=== PATIENT | female | born 1980 | race American Indian/Alaskan Native ===

== ENCOUNTER 2018-05-06 09:23 | Emergency (ER) | payer OTHER ==
[2018-05-06] MEDS ORDERED: CATAPRES ONE (10:03)
[2018-05-06] MEDS ORDERED: ASPIRIN PO ONE (10:04)
[2018-05-06] MEDS ORDERED: CATAPRES PO ONE ×2 (10:05→11:52)
[2018-05-06 10:38] LABS: Basophils # (Auto) 0.1 K/mm3 (0.0-0.1); Basophils % (Auto) 0.9 % (0.0-1.8); Eosinophils # (Auto) 0.2 K/mm3 (0.0-0.4); Eosinophils % (Auto) 2.6 % (0.0-4.3); Hematocrit 41.5 % (30.3-42.9); Hemoglobin 14.1 gm/dl (10.1-14.3); Lymphocytes # (Auto) 2.3 K/mm3 (1.2-5.4); Lymphocytes % (Auto) 30.9 % (13.4-35.0); Mean Corpuscular HGB Conc 34 % (30-34); Mean Corpuscular Volume 94 fl (79-97); Monocytes # (Auto) 0.8 K/mm3 (0.0-0.8); Monocytes % (Auto) 11.1 % (0.0-7.3); Platelet Count 202 K/mm3 (140-440); Red Blood Count 4.42 M/mm3 (3.65-5.03); Red Cell Distribution Width 13.1 % (13.2-15.2)
[2018-05-06 10:51] LABS: BUN/Creatinine Ratio 12; Blood Urea Nitrogen 12 mg/dL (7-17); Calcium 8.9 mg/dL (8.4-10.2); Hemolysis Index 8
[2018-05-06] MEDS ORDERED: TORADOL IM ONE (11:21)
--- NOTE | 2018-05-06 11:28 | Emergency Department Report ---
ED General Adult HPI - General Chief complaint: High BP Stated complaint: HBP/TOOTHACHE Time Seen by Provider: 05/06/18 10:21 Source: patient, old records reviewed (no previous record) Mode of arrival: Ambulatory Limitations: No Limitations - History of Present Illness Initial comments: 37-year-old female the past medical history of hypertension presents to the hospital complaining of elevated blood pressure 2 days. Patient has a history of hypertension has been off medications for at least 3 months. She bought a blood pressure cuff monitor 2 days ago and her systolic blood pressure has consistently been over 200s. Patient complains of intermittent headache but denies headache at this time. She also has intermittent chest tightness which is chronic occasional shortness of breath. She denies nausea, vomiting, or diaphoresis. She also complains of left tooth ache/abscess pain that is moderate to severe in intensity and interfering with sleep. No complaints of fever or neck stiffness. Patient has chronic intermittent ankle edema which is unchanged. Patient tried to fill her previously prescribed medicines which include Norvasc 5 mg and a BP/diuretic combination medication. She could not afford the over $70 cost and was advised to have her medications adjusted. Patient reports having a negative stress test performed 6-7 months ago and states she was diagnosed with LVH. PMD: none Severity scale (0 -10): 7 - Related Data Previous Rx's Medication Instructions Recorded Last Taken Type Aspirin EC [Aspirin Enteric Coated 325 mg PO QDAY #30 tablet. 05/06/18 Unknown Rx TAB] Atenolol [Tenormin] 50 mg PO BID #60 tab 05/06/18 Unknown Rx Clindamycin [Clindamycin CAP] 450 mg PO Q8HR 7 Days capsule 05/06/18 Unknown Rx Ibuprofen [Motrin] 800 mg PO Q8HR PRN #30 tablet 05/06/18 Unknown Rx amLODIPine [Norvasc] 10 mg PO DAILY #30 tab 05/06/18 Unknown Rx traMADol [Ultram 50 MG tab] 50 mg PO Q6HR PRN #20 tablet 05/06/18 Unknown Rx Allergies Allergy/AdvReac Type Severity Reaction Status Date / Time No Known Allergies Allergy Verified 05/06/18 11:08 ED Review of Systems ROS: Stated complaint: HBP/TOOTHACHE Other details as noted in HPI Comment: All other systems reviewed and negative ED Past Medical Hx - Past Medical History Previous Medical History?: Yes Hx Hypertension: Yes - Surgical History Past Surgical History?: Yes Additional Surgical History: Surgery to left leg - Social History Smoking Status: Never Smoker Substance Use Type: Alcohol - Medications Home Medications: Home Medications Medication Instructions Recorded Confirmed Last Taken Type Aspirin EC [Aspirin Enteric Coated 325 mg PO QDAY #30 tablet. 05/06/18 Unknown Rx TAB] Atenolol [Tenormin] 50 mg PO BID #60 tab 05/06/18 Unknown Rx Clindamycin [Clindamycin CAP] 450 mg PO Q8HR 7 Days capsule 05/06/18 Unknown Rx Ibuprofen [Motrin] 800 mg PO Q8HR PRN #30 tablet 05/06/18 Unknown Rx amLODIPine [Norvasc] 10 mg PO DAILY #30 tab 05/06/18 Unknown Rx traMADol [Ultram 50 MG tab] 50 mg PO Q6HR PRN #20 tablet 05/06/18 Unknown Rx ED Physical Exam - General Limitations: No Limitations - Other Other exam information: General: No limitations, patient is alert in no acute distress Head exam: Atraumatic, normocephalic Eyes exam: Normal appearance, pupils equal reactive to light, extraocular movements intact ENT: Moist mucous membrane, left tooth #17 with dental caries with tooth #18 missing. Positive gum tenderness with mild swelling. No facial swelling. Neck exam: Normal inspection, full range of motion, no meningismus nontender Respiratory exam: Clear to auscultation bilateral, no wheezes, rales, crackles Cardiovascular: Normal rate and rhythm, normal heart sounds Abdomen: Soft, nondistended, and nontender, with normal bowel sounds, no rebound, or guarding Extremity: Full range of motion, bilateral ankle edema Back: Normal Inspection, full range of motion, no tenderness Neurologic: Alert, oriented x3, cranial nerves intact, no motor or sensory de ficit Psychiatric: normal affect, normal mood Skin: Warm, dry, intact ED Course Vital Signs 05/06/18 05/06/18 05/06/18 09:47 10:07 11:34 Temperature 98 F Pulse Rate 85 85 74 Respiratory 18 18 Rate Blood Pressure 201/145 201/145 Blood Pressure 189/120 [Right] O2 Sat by Pulse 98 Oximetry 05/06/18 05/06/18 05/06/18 11:35 11:57 13:17 Temperature Pulse Rate 74 Respiratory 18 Rate Blood Pressure 189/120 Blood Pressure 178/116 [Right] O2 Sat by Pulse Oximetry 05/06/18 05/06/18 13:58 15:44 Temperature Pulse Rate 72 68 Respiratory Rate Blood Pressure 178/116 Blood Pressure 166/115 [Right] O2 Sat by Pulse Oximetry - Reevaluation(s) Reevaluation #1: 05/06/18 14:47 Patient continues to complain generalized weakness and fatigue. Unsure if this is secondary to her dental infection or uncontrolled hypertension. Despite hours in the ED and multiple meds she continues to be hypertensive and not feeling well therefore be admitted to the hospital Reevaluation #2: 05/06/18 16:02 Case was discussed with Dr. Agosto however, nurse informed me at this time the patient does not want to be admitted. She will be signed out against medical - Consultations Consultation #1: 05/06/18 13:50 Case discussed with outpatient facility physical therapist Dr. Mclean. He recommends Norvasc 10 mg and atenolol 50 mg twice a day. outpt f/u advised if sx improve ED Medical Decision Making - Lab Data Result diagrams: 05/06/18 10:12 05/06/18 10:12 Lab Results 05/06/18 05/06/18 05/06/18 Range/Units 10:12 10:12 10:12 WBC 7.4 (4.5-11.0) K/mm3 RBC 4.42 (3.65-5.03) M/mm3 Hgb 14.1 (10.1-14.3) gm/dl Hct 41.5 (30.3-42.9) % MCV 94 (79-97) fl MCH 32 (28-32) pg MCHC 34 (30-34) % RDW 13.1 L (13.2-15.2) % Plt Count 202 (140-440) K/mm3 Lymph % (Auto) 30.9 (13.4-35.0) % [place] % (Auto) 11.1 H (0.0-7.3) % Eos % (Auto) 2.6 (0.0-4.3) % Baso % (Auto) 0.9 (0.0-1.8) % Lymph # 2.3 (1.2-5.4) K/mm3 [place] # 0.8 (0.0-0.8) K/mm3 Eos # 0.2 (0.0-0.4) K/mm3 Baso # 0.1 (0.0-0.1) K/mm3 Seg Neutrophils % 54.5 (40.0-70.0) % Seg Neutrophils # 4.0 (1.8-7.7) K/mm3 Sodium 140 (137-145) mmol/L Potassium 3.7 (3.6-5.0) mmol/L Chloride 102.0 (98-107) mmol/L Carbon Dioxide 25 (22-30) mmol/L Anion Gap 17 mmol/L BUN 12 (7-17) mg/dL Creatinine 1.0 (0.7-1.2) mg/dL Estimated GFR > 60 ml/min BUN/Creatinine Ratio 12 % Glucose 90 (65-100) mg/dL Calcium 8.9 (8.4-10.2) mg/dL Troponin T < 0.010 (0.00-0.029) ng/mL HCG, Qual Negative (Negative) 05/06/18 Range/Units 13:03 WBC (4.5-11.0) K/mm3 RBC (3.65-5.03) M/mm3 Hgb (10.1-14.3) gm/dl Hct (30.3-42.9) % MCV (79-97) fl MCH (28-32) pg MCHC (30-34) % RDW (13.2-15.2) % Plt Count (140-440) K/mm3 Lymph % (Auto) (13.4-35.0) % [place] % (Auto) (0.0-7.3) % Eos % (Auto) (0.0-4.3) % Baso % (Auto) (0.0-1.8) % Lymph # (1.2-5.4) K/mm3 [place] # (0.0-0.8) K/mm3 Eos # (0.0-0.4) K/mm3 Baso # (0.0-0.1) K/mm3 Seg Neutrophils % (40.0-70.0) % Seg Neutrophils # (1.8-7.7) K/mm3 Sodium (137-145) mmol/L Potassium (3.6-5.0) mmol/L Chloride (98-107) mmol/L Carbon Dioxide (22-30) mmol/L Anion Gap mmol/L BUN (7-17) mg/dL Creatinine (0.7-1.2) mg/dL Estimated GFR ml/min BUN/Creatinine Ratio % Glucose (65-100) mg/dL Calcium (8.4-10.2) mg/dL Troponin T < 0.010 (0.00-0.029) ng/mL HCG, Qual (Negative) - EKG Data -: EKG Interpreted by Me EKG shows normal: sinus rhythm, axis (qrs40), QRS complexes (qrsd 87), ST-T w aves (no ST elevation WI) Rate: normal (79) - EKG Data When compared to previous EKG there are: previous EKG unavailable - Radiology Data Radiology results: report reviewed Chest x-ray: No acute findings - Medical Decision Making Plan significant recent hospital for further cardiac evaluation and management of blood pressure BP did have some improvement in the ED Patient continued to be symptomatic Clindamycin provided for dental infection - Differential Diagnosis WI, unstable angina, hypertensive emergency, medication noncompliance Critical Care Time: No Critical care attestation.: If time is entered above; I have spent that time in minutes in the direct care of this critically ill patient, excluding procedure time. ED Disposition Clinical Impression: Uncontrolled hypertension, Noncompliance with medication regimen, Chest tightness, Fatigue, Dental infection Disposition: DC-07 LEFT AGAINST MED ADVICE Is pt being admited?: Yes Does the pt Need Aspirin: Yes Condition: Stable Instructions: Hypertension (ED), Toothache (ED), Chest Pain (ED) Additional Instructions: Take the medication as prescribed. Follow up with your doctor or the clinic/doctor provided. Return if symptoms worsen as indicated by your discharge instructions Prescriptions: Aspirin EC [Aspirin Enteric Coated TAB] 325 mg PO QDAY #30 tablet. Clindamycin [Clindamycin CAP] 450 mg PO Q8HR 7 Days capsule Ibuprofen [Motrin] 800 mg PO Q8HR PRN #30 tablet PRN Reason: Pain, Moderate (4-6) amLODIPine [Norvasc] 10 mg PO DAILY #30 tab Atenolol [Tenormin] 50 mg PO BID #60 tab traMADol [Ultram 50 MG tab] 50 mg PO Q6HR PRN #20 tablet PRN Reason: Pain [facility] [Primary Care [facility] - 3-5 Days VALENTINA KIMBALL MD [Staff Physician] - 3-5 Days [facility] [Outside] - 3-5 Days Forms: AMA Form Time of Disposition: 14:51 (Dr Agosto/hosp)
--- NOTE | 2018-05-06 12:45 | XRay Report ---
EXAM: XR CHEST ROUTINE 2V HISTORY: Chest pain. TECHNIQUE: PA and lateral chest x-ray dated 05/06/2018 at 11:50 AM. COMPARISON: None available. FINDINGS: The heart size and mediastinum are within normal limits. The lung raman and costophrenic angles are clear. There is no acute parenchymal infiltrate, pleural effusion, or pneumothorax seen. The visua lized bony structures are within normal limits. IMPRESSION: 1. No evidence for acute cardiopulmonary disease seen. This document is electronically signed by Bakari Early MD., May 06 2018 12:42:54 PM ET
[2018-05-06] MEDS: TENORMIN PO ONE ×2 (13:55→13:58)
[2018-05-06] MEDS ORDERED: CLEOCIN PO ONE (14:50)
--- NOTE | 2018-05-06 15:32 | Cat Scan Report ---
PROCEDURE: CT HEAD/BRAIN WO CON TECHNIQUE: CT images of the head were obtained without the use of IV contrast HISTORY: weak COMPARISONS: None available FINDINGS: No CT evidence of intracranial mass, hemorrhage, acute territorial infarction, or hydrocephalus. Dura l calcifications are noted. Calvarium is intact. Paranasal sinuses are not fully imaged. There is ant erior left ethmoid sinus mucosal thickening. IMPRESSION: No CT evidence of acute intracranial abnormality. The paranasal sinuses are not fully imaged, however left anterior ethmoid sinus mucosal thickening is noted. This document is electronically signed by Traci Bryant MD., May 06 2018 03:29:59 PM ET
[2018-05-06 15:34] LABS: Amphetamine Screen,Urine PRESUMPTIVE NEGATIVE; Benzodiazepines Screen,Urine PRESUMPTIVE NEGATIVE; Cannabinoid Screen,Urine PRESUMPTIVE NEGATIVE; Cocaine Screen,Urine PRESUMPTIVE NEGATIVE; Methadone Screen,Urine PRESUMPTIVE NEGATIVE; Opiate Screen,Urine PRESUMPTIVE NEGATIVE
[2018-05-06 15:45] VITALS: BP 166/115
--- NOTE | 2018-05-06 18:26 | Event Note ---
Date: 05/06/18 37 YO Female with Uncontrolled HTN, Medication noncompliance presents to ED for evaluation. Pt Left AMA prior to completion of workup. Pt counseled regarding risk of worsening symptoms, Stroke, and possible . Pt acknowledges understanding instructions. Pt left AMA. General: No limitations, patient is alert in no acute distress Head exam: Atraumatic, normocephalic Eyes exam: Normal appearance, pupils equal reactive to light, extraocular movements intact ENT: Moist mucous membrane, left tooth #17 with dental caries with tooth #18 missing. Positive gum tenderness with mild swelling. No facial swelling. Neck exam: Normal inspection, full range of motion, no meningismus nontender Respiratory exam: Clear to auscultation bilateral, no wheezes, rales, crackles Cardiovascular: Normal rate and rhythm, normal heart sounds Abdomen: Soft, nondistended, and nontender, with normal bowel sounds, no rebound, or guarding Extremity: Full range of motion, bilateral ankle edema Back: Normal Inspection, full range of motion, no tenderness Neurologic: Alert, oriented x3, cranial nerves intact, no motor or sensory deficit Psychiatric: normal affect, normal mood Skin: Warm, dry, intact
== END 2018-05-06 16:37 | disposition left against medical advice (07) ==
LOC: ED 09:23
DX: I16.0 Hypertensive urgency (principal); I10 Essential (primary) hypertension; K08.89 Other specified disorders of teeth and supporting structures; Z79.82 Long term (current) use of aspirin
CPT/HCPCS: 36415; 70450; 71046; 80048; 80307; 84484; 84703; 85025; 93005; 93010; 96372; 99285; J1885

== ENCOUNTER 2018-07-04 11:59 | Emergency (ER) | payer OTHER ==
[2018-07-04] MEDS ORDERED: CATAPRES PO ONE ×2 (12:32→16:57)
[2018-07-04 12:33] VITALS: BP 219/119
[2018-07-04] MEDS ORDERED: CATAPRES ONE ×2 (12:35→16:58)
--- NOTE | 2018-07-04 12:35 | Emergency Department Report ---
Chief Complaint: Chest Pain Stated Complaint: CHEST PAIN/LEG SWOLLEN/HTN Time Seen by Provider: 07/04/18 12:31 - HPI History of Present Illness: pmh uncontrolled htn elevated ddimer non compliant with norvasc, clonidine and another bp med co sob ble swelling legs obese no fam hx previous smoker mse completed - Exam Vital Signs: Vital Signs 07/04/18 12:30 Temperature 97.4 F L Pulse Rate 84 Respiratory 20 Rate Blood Pressure 219/119 [Right] O2 Sat by Pulse 99 Oximetry MSE screening note: Focused history and physical exam performed. Due to findings the following was ordered: ED Disposition for MSE Condition: Stable
[2018-07-04 13:47] LABS: HCG Qualitative,Urine Negative (Negative)
[2018-07-04 13:48] LABS: Bacteria,Urine 1+ /HPF (Negative); Bilirubin,Urine NEG (Negative); Blood,Urine NEG (Negative); Color,Urine Yellow (Yellow); Mucus,Urine FEW /HPF; Protein,Urine <15 mg/dL mg/dL (Negative); Urobilinogen,Urine < 2.0 mg/dL (<2.0); WBC,Urine < 1.0 /HPF (0.0-6.0)
--- NOTE | 2018-07-04 14:04 | XRay Report ---
Chest 2 views: History: Chest pain. Findings: Normal cardiomediastinal silhouette. Trachea is midline. No consolidation, pneumothorax or pleural effusion. Impression: No acute cardiopulmonary findings.
--- NOTE | 2018-07-04 14:13 | Vascular Lab Report ---
PROCEDURE: VL VENOUS DUPLEX LE BILAT TECHNIQUE: Downs scale, color and pulsed Doppler ultrasound with color flow and spectral analysis eval uation of both lower extremities were performed to assess for deep vein thrombosis. HISTORY: hx DVT leg swelling COMPARISONS: None currently available. FINDINGS: RIGHT extremity: There is normal grayscale appearance and compressibility. Normal phasic pulsed Doppler and normal col or Doppler flow are visualized. The interrogated vessels show normal augmentation. LEFT extremity: There is normal grayscale appearance and compressibility. Normal phasic pulsed Doppler and normal col or Doppler flow are visualized. The interrogated vessels show normal augmentation. IMPRESSION: * No evidence for DVT. This document is electronically signed by Gonzalo Ayala MD., Jul 04 2018 02:11:27 PM ET
[2018-07-04 15:05] LABS: Basophils # (Auto) 0.1 K/mm3 (0.0-0.1); Basophils % (Auto) 0.7 % (0.0-1.8); Eosinophils # (Auto) 0.2 K/mm3 (0.0-0.4); Eosinophils % (Auto) 2.4 % (0.0-4.3); Hematocrit 38.3 % (30.3-42.9); Hemoglobin 12.9 gm/dl (10.1-14.3); Lymphocytes # (Auto) 1.8 K/mm3 (1.2-5.4); Lymphocytes % (Auto) 21.4 % (13.4-35.0); Mean Corpuscular HGB Conc 34 % (30-34); Mean Corpuscular Volume 94 fl (79-97); Monocytes # (Auto) 0.9 K/mm3 (0.0-0.8); Monocytes % (Auto) 10.1 % (0.0-7.3); Platelet Count 239 K/mm3 (140-440); Red Blood Count 4.06 M/mm3 (3.65-5.03)
[2018-07-04 15:27] LABS: Alanine Aminotransferase 22 units/L (7-56); Albumin 3.9 g/dL (3.9-5); BUN/Creatinine Ratio 17; Blood Urea Nitrogen 20 mg/dL (7-17); Hemolysis Index 4
--- NOTE | 2018-07-04 16:43 | Emergency Department Report ---
ED Chest Pain HPI - General Chief Complaint: Chest Pain Stated Complaint: CHEST PAIN/LEG SWOLLEN/HTN Time Seen by Provider: 07/04/18 12:31 Source: patient Mode of arrival: Ambulatory Limitations: No Limitations - History of Present Illness Initial Comments: is a 37-year-old female who has a history of poorly controlled hypertension who is stating that her blood pressures been very elevated for S week. Patient states she ran out of her blood pressure medicines and does not have refill. Patient states she has occasional chest discomfort which is a smothering sensation especially when she is laying flat. Patient also has a decrease in her exercise tolerance and lower extremity edema especially and ankles. Patient is currently chest pain-free to speak in full sentences. Patient denies any diaphoresis nausea vomiting fever chills cough cold or congestion. Severity scale (0 -10): 4 - Related Data Previous Rx's Medication Instructions Recorded Last Taken Type Aspirin EC [Aspirin Enteric Coated 325 mg PO QDAY #30 tablet. 05/06/18 Unknown Rx TAB] Atenolol [Tenormin] 50 mg PO BID #60 tab 05/06/18 Unknown Rx Clindamycin [Clindamycin CAP] 450 mg PO Q8HR 7 Days capsule 05/06/18 Unknown Rx Ibuprofen [Motrin] 800 mg PO Q8HR PRN #30 tablet 05/06/18 Unknown Rx amLODIPine [Norvasc] 10 mg PO DAILY #30 tab 05/06/18 Unknown Rx traMADol [Ultram 50 MG tab] 50 mg PO Q6HR PRN #20 tablet 05/06/18 Unknown Rx Furosemide [Lasix] 20 mg PO QDAY #5 tablet 07/04/18 Unknown Rx Ibuprofen [Ibu] 600 mg PO Q6HR PRN #20 tablet 07/04/18 Unknown Rx Lisinopril/Hydrochlorothiazide 1 each PO DAILY #30 tablet 07/04/18 Unknown Rx [Zestoretic 10-12.5 mg Tablet] amLODIPine [Norvasc] 10 mg PO DAILY #30 tab 07/04/18 Unknown Rx Allergies Allergy/AdvReac Type Severity Reaction Status Date / Time No Known Allergies Allergy Verified 07/04/18 12:10 Heart Score - HEART Score History: Slightly suspicious EKG: Non-specific Age: < 45 Risk factors: 1-2 risk factors Troponin: < normal limit HEART Score: 2 ED Review of Systems ROS: Stated complaint: CHEST PAIN/LEG SWOLLEN/HTN Other details as noted in HPI Comment: All other systems reviewed and negative ED Past Medical Hx - Past Medical History Hx Hypertension: Yes - Surgical History Additional Surgical History: Surgery to left leg - Social History Smoking Status: Never Smoker Substance Use Type: Alcohol - Medications Home Medications: Home Medications Medication Instructions Recorded Confirmed Last Taken Type Aspirin EC [Aspirin Enteric Coated 325 mg PO QDAY #30 tablet.dr 05/06/18 Unknown Rx TAB] Atenolol [Tenormin] 50 mg PO BID #60 tab 05/06/18 Unknown Rx Clindamycin [Clindamycin CAP] 450 mg PO Q8HR 7 Days capsule 05/06/18 Unknown Rx Ibuprofen [Motrin] 800 mg PO Q8HR PRN #30 tablet 05/06/18 Unknown Rx amLODIPine [Norvasc] 10 mg PO DAILY #30 tab 05/06/18 Unknown Rx traMADol [Ultram 50 MG tab] 50 mg PO Q6HR PRN #20 tablet 05/06/18 Unknown Rx Furosemide [Lasix] 20 mg PO QDAY #5 tablet 07/04/18 Unknown Rx Ibuprofen [Ibu] 600 mg PO Q6HR PRN #20 tablet 07/04/18 Unknown Rx Lisinopril/Hydrochlorothiazide 1 each PO DAILY #30 tablet 07/04/18 Unknown Rx [Zestoretic 10-12.5 mg Tablet] amLODIPine [Norvasc] 10 mg PO DAILY #30 tab 07/04/18 Unknown Rx ED Physical Exam - General Limitations: No Limitations General appearance: alert, in no apparent distress - Head Head exam: Present: atraumatic, normocephalic - Eye Eye exam: Present: normal appearance - ENT ENT exam: Present: mucous membranes moist - Neck Neck exam: Present: normal inspection - Respiratory Respiratory exam: Present: normal lung sounds bilaterally. Absent: respiratory distress, wheezes, rales, rhonchi - Cardiovascular Cardiovascular Exam: Present: regular rate, normal rhythm. Absent: systolic murmur, diastolic murmur, rubs, gallop - GI/Abdominal GI/Abdominal exam: Present: soft, normal bowel sounds. Absent: distended, tenderness, guarding, rebound - Extremities Exam Extremities exam: Present: normal inspection, joint swelling (bilateral ankles) - Back Exam Back exam: Present: normal inspection - Neurological Exam Neurological exam: Present: alert, oriented X3 - Psychiatric Psychiatric exam: Present: normal affect, normal mood - Skin Skin exam: Present: warm, dry, intact, normal color. Absent: rash ED Course Vital Signs 07/04/18 12:30 Temperature 97.4 F L Pulse Rate 84 Respiratory 20 Rate Blood Pressure 219/119 [Right] O2 Sat by Pulse 99 Oximetry ED Medical Decision Making - Lab Data Result diagrams: 07/04/18 14:48 07/04/18 14:48 Lab Results 07/04/18 07/04/18 07/04/18 Range/Units 13:32 14:48 14:48 WBC 8.6 (4.5-11.0) K/mm3 RBC 4.06 (3.65-5.03) M/mm3 Hgb 12.9 (10.1-14.3) gm/dl Hct 38.3 (30.3-42.9) % MCV 94 (79-97) fl MCH 32 (28-32) pg MCHC 34 (30-34) % RDW 14.0 (13.2-15.2) % Plt Count 239 (140-440) K/mm3 Lymph % (Auto) 21.4 (13.4-35.0) % [place] % (Auto) 10.1 H (0.0-7.3) % Eos % (Auto) 2.4 (0.0-4.3) % Baso % (Auto) 0.7 (0.0-1.8) % Lymph # 1.8 (1.2-5.4) K/mm3 [place] # 0.9 H (0.0-0.8) K/mm3 Eos # 0.2 (0.0-0.4) K/mm3 Baso # 0.1 (0.0-0.1) K/mm3 Seg Neutrophils % 65.4 (40.0-70.0) % Seg Neutrophils # 5.6 (1.8-7.7) K/mm3 Sodium 140 (137-145) mmol/L Potassium 4.0 (3.6-5.0) mmol/L Chloride 103.4 (98-107) mmol/L Carbon Dioxide 26 (22-30) mmol/L Anion Gap 15 mmol/L BUN 20 H (7-17) mg/dL Creatinine 1.2 (0.7-1.2) mg/dL Estimated GFR > 60 ml/min BUN/Creatinine Ratio 17 % Glucose 96 (65-100) mg/dL Calcium 9.0 (8.4-10.2) mg/dL Total Bilirubin < 0.20 (0.1-1.2) mg/dL AST 19 (5-40) units/L ALT 22 (7-56) units/L Alkaline Phosphatase 42 (35-129) units/L Troponin T < 0.010 (0.00-0.029) ng/mL NT-Pro-B Natriuret Pep (0-450) pg/mL Total Protein 6.6 (6.3-8.2) g/dL Albumin 3.9 (3.9-5) g/dL Albumin/Globulin Ratio 1.4 % Urine Color Yellow (Yellow) Urine Turbidity Slightly-cloudy (Clear) Urine pH 5.0 (5.0-7.0) Ur Specific [place] 1.023 (1.003-1.030) Urine Protein <15 mg/dl (Negative) mg/dL Urine Glucose (UA) Neg (Negative) mg/dL Urine Ketones Neg (Negative) mg/dL Urine Blood Neg (Negative) Urine Nitrite Neg (Negative) Ur Reducing Substances Not Reportable Urine Bilirubin Neg (Negative) Urine Ictotest Not Reportable Urine Urobilinogen < 2.0 (<2.0) mg/dL Ur Leukocyte Esterase Neg (Negative) Urine WBC (Auto) < 1.0 (0.0-6.0) /HPF Urine RBC (Auto) 2.0 (0.0-6.0) /HPF U Epithel Cells (Auto) 5.0 (0-13.0) /HPF Urine Bacteria (Auto) 1+ (Negative) /HPF Urine Mucus Few /HPF Urine HCG, Qual Negative (Negative) 07/04/18 Range/Units 14:48 WBC (4.5-11.0) K/mm3 RBC (3.65-5.03) M/mm3 Hgb (10.1-14.3) gm/dl Hct (30.3-42.9) % MCV (79-97) fl MCH (28-32) pg MCHC (30-34) % RDW (13.2-15.2) % Plt Count (140-440) K/mm3 Lymph % (Auto) (13.4-35.0) % [place] % (Auto) (0.0-7.3) % Eos % (Auto) (0.0-4.3) % Baso % (Auto) (0.0-1.8) % Lymph # (1.2-5.4) K/mm3 [place] # (0.0-0.8) K/mm3 Eos # (0.0-0.4) K/mm3 Baso # (0.0-0.1) K/mm3 Seg Neutrophils % (40.0-70.0) % Seg Neutrophils # (1.8-7.7) K/mm3 Sodium (137-145) mmol/L Potassium (3.6-5.0) mmol/L Chloride (98-107) mmol/L Carbon Dioxide (22-30) mmol/L Anion Gap mmol/L BUN (7-17) mg/dL Creatinine (0.7-1.2) mg/dL Estimated GFR ml/min BUN/Creatinine Ratio % Glucose (65-100) mg/dL Calcium (8.4-10.2) mg/dL Total Bilirubin (0.1-1.2) mg/dL AST (5-40) units/L ALT (7-56) units/L Alkaline Phosphatase (35-129) units/L Troponin T (0.00-0.029) ng/mL NT-Pro-B Natriuret Pep 91.29 (0-450) pg/mL Total Protein (6.3-8.2) g/dL Albumin (3.9-5) g/dL Albumin/Globulin Ratio % Urine Color (Yellow) Urine Turbidity (Clear) Urine pH (5.0-7.0) Ur Specific [place] (1.003-1.030) Urine Protein (Negative) mg/dL Urine Glucose (UA) (Negative) mg/dL Urine Ketones (Negative) mg/dL Urine Blood (Negative) Urine Nitrite (Negative) Ur Reducing Substances Urine Bilirubin (Negative) Urine Ictotest Urine Urobilinogen (<2.0) mg/dL Ur Leukocyte Esterase (Negative) Urine WBC (Auto) (0.0-6.0) /HPF Urine RBC (Auto) (0.0-6.0) /HPF U Epithel Cells (Auto) (0-13.0) /HPF Urine Bacteria (Auto) (Negative) /HPF Urine Mucus /HPF Urine HCG, Qual (Negative) - EKG Data -: EKG Interpreted by Me EKG shows normal: sinus rhythm, axis, intervals, QRS complexes, ST-T waves Rate: normal - EKG Data Interpretation: LVH - Radiology Data Radiology results: report reviewed (CXR WNL) - Medical Decision Making Did have a conversation with the patient regarding better management of her blood pressure. Patient believes in the very earliest spectrum of congestive heart failure. While sitting still the patient is symptom-free. Patient's blood pressure was 184/120 at the time of discharge. Patient's currently not having any symptoms. Patient restarted back on her Norvasc 10. Patient states that she is was not happy with the Catapres that she was on and the patient will be switched to lisinopril Hendricks with eyes. Patient also given 1 week of Lasix. Critical Care Time: Yes (30) Critical care attestation.: If time is entered above; I have spent that time in minutes in the direct care of this critically ill patient, excluding procedure time. ED Disposition Clinical Impression: Hypertensive urgency, malignant Disposition: DC-01 TO HOME OR SELFCARE Is pt being admited?: No Does the pt Need Aspirin: No Condition: Stable Instructions: Hypertension (ED) Referrals: ESTEVAN JO MD [Staff Physician] - 3-5 Days Time of Disposition: 16:46
== END 2018-07-04 16:58 | disposition home or self-care (01) ==
LOC: ED 11:59
DX: I16.0 Hypertensive urgency (principal); I10 Essential (primary) hypertension
CPT/HCPCS: 36415; 71046; 80053; 81001; 81025; 83880; 84484; 85025; 93005; 93010; 93970

== ENCOUNTER 2018-09-19 14:34 | Emergency (ER) | payer SELFPAY ==
[2018-09-19 15:16] LABS: Basophils # (Auto) 0.1 K/mm3 (0.0-0.1); Basophils % (Auto) 0.9 % (0.0-1.8); Eosinophils # (Auto) 0.2 K/mm3 (0.0-0.4); Eosinophils % (Auto) 2.1 % (0.0-4.3); Hematocrit 43.4 % (30.3-42.9); Lymphocytes # (Auto) 2.5 K/mm3 (1.2-5.4); Lymphocytes % (Auto) 31.7 % (13.4-35.0); Mean Corpuscular HGB Conc 35 % (30-34); Mean Corpuscular Volume 95 fl (79-97); Monocytes # (Auto) 0.7 K/mm3 (0.0-0.8); Monocytes % (Auto) 8.9 % (0.0-7.3); Platelet Count 245 K/mm3 (140-440); Red Blood Count 4.58 M/mm3 (3.65-5.03); Red Cell Distribution Width 13.5 % (13.2-15.2)
[2018-09-19 15:50] LABS: BUN/Creatinine Ratio 12; Blood Urea Nitrogen 13 mg/dL (7-17); Calcium 9.1 mg/dL (8.4-10.2); Hemolysis Index 12
[2018-09-19] MEDS ORDERED: CATAPRES PO ONE (16:14)
--- NOTE | 2018-09-19 16:34 | Emergency Department Report ---
HPI - General Chief Complaint: High BP Time Seen by Provider: 09/19/18 16:12 - HPI HPI: Room 8 The patient is a 37-year-old female presenting with a chief complaint of hypertension. The patient states she ran out of her blood pressure medication approximately 4 days ago and has since noticed her blood pressure is elevated. Patient states the past 3 days she's had intermittent diffuse headache. The patient states for the past 4 days she's had intermittent chest tightness with exertion associated with shortness of breath. Patient was to dyspnea on exertion but denies nausea/vomiting or diaphoresis. Patient states her last stress test occurred approximately one year ago she's never had a cardiac catheterization. Location: [See above] Duration: [See above] Quality: [See above] Severity: [See above] Modifying factors: [see above] Context: [see above] Mode of transportation: [not driving] ED Past Medical Hx - Past Medical History Previous Medical History?: Yes Hx Hypertension: Yes Additional medical history: LVH - Surgical History Past Surgical History?: Yes Additional Surgical History: Surgery to left leg - Family History Family history: no significant - Social History Smoking Status: Current Some Day Smoker (Black and milds) Substance Use Type: None (denies illicit drug use), Alcohol (moderate) - Medications Home Medications: Home Medications Medication Instructions Recorded Confirmed Last Taken Type Aspirin EC 325 mg PO QDAY #30 tablet. 05/06/18 Unknown Rx Atenolol [Tenormin] 50 mg PO BID #60 tab 05/06/18 Unknown Rx Clindamycin [Clindamycin CAP] 450 mg PO Q8HR 7 Days capsule 05/06/18 Unknown Rx Ibuprofen [Motrin] 800 mg PO Q8HR PRN #30 tablet 05/06/18 Unknown Rx amLODIPine [Norvasc] 10 mg PO DAILY #30 tab 05/06/18 Unknown Rx traMADol [Ultram 50 MG tab] 50 mg PO Q6HR PRN #20 tablet 05/06/18 Unknown Rx Furosemide [Lasix] 20 mg PO QDAY #5 tablet 07/04/18 Unknown Rx Ibuprofen [Ibu] 600 mg PO Q6HR PRN #20 tablet 07/04/18 Unknown Rx Lisinopril/Hydrochlorothiazide 1 each PO DAILY #30 tablet 07/04/18 Unknown Rx [Zestoretic 10-12.5 mg Tablet] amLODIPine [Norvasc] 10 mg PO DAILY #30 tab 07/04/18 Unknown Rx ED Review of Systems ROS: Stated complaint: HBP 251/144 SOB Other details as noted in HPI Constitutional: denies: diaphoresis Eyes: denies: eye pain ENT: denies: throat pain Respiratory: shortness of breath, SOB with exertion Cardiovascular: chest pain Endocrine: no symptoms reported Gastrointestinal: denies: nausea, vomiting Genitourinary: denies: dysuria Musculoskeletal: denies: back pain Neurological: headache Physical Exam - Physical Exam Vital Signs: Vital Signs 09/19/18 09/19/18 09/19/18 14:49 15:49 16:11 Temperature 98.1 F Pulse Rate 99 H 72 72 Respiratory 20 18 18 Rate Blood Pressure 223/154 Blood Pressure 216/113 206/113 [Left] O2 Sat by Pulse 97 100 100 Oximetry Physical Exam: GENERAL: The patient is well-developed well-nourished female lying on stretcher not appearing to be in acute distress. [] HEENT: Normocephalic. Atraumatic. Extraocular motions are intact. Patient has moist mucous membranes. NECK: Supple. Trachea midline CHEST/LUNGS: Clear to auscultation. There is no respiratory distress noted. HEART/CARDIOVASCULAR: Regular. There is no tachycardia. There is no gallop rub or murmur. ABDOMEN: Abdomen is soft, nontender. Patient has normal bowel sounds. There is no abdominal distention. SKIN: There is no rash. There is no edema. There is no diaphoresis. NEURO: The patient is awake, alert, and oriented. The patient is cooperative. The patient has no focal neurologic deficits. The patient has normal speech. Cranial nerves II-12 grossly intact, no drift MUSCULOSKELETAL: There is no evidence of acute injury. ED Course Vital Signs 09/19/18 09/19/18 09/19/18 14:49 15:49 16:11 Temperature 98.1 F Pulse Rate 99 H 72 72 Respiratory 20 18 18 Rate Blood Pressure 223/154 Blood Pressure 216/113 206/113 [Left] O2 Sat by Pulse 97 100 100 Oximetry ED Medical Decision Making - Lab Data Result diagrams: 09/19/18 14:58 09/19/18 14:58 Laboratory Tests 09/19/18 09/19/18 09/19/18 14:58 14:58 14:58 WBC 8.0 RBC 4.58 Hgb 15.0 H Hct 43.4 H MCV 95 MCH 33 H MCHC 35 H RDW 13.5 Plt Count 245 Lymph % (Auto) 31.7 Phelps % (Auto) 8.9 H Eos % (Auto) 2.1 Baso % (Auto) 0.9 Lymph # 2.5 Phelps # 0.7 Eos # 0.2 Baso # 0.1 Seg Neutrophils % 56.4 Seg Neutrophils # 4.5 Sodium 140 Potassium 3.6 Chloride 104.6 Carbon Dioxide 22 Anion Gap 17 BUN 13 Creatinine 1.1 Estimated GFR > 60 BUN/Creatinine Ratio 12 Glucose 101 H Calcium 9.1 Troponin T < 0.010 HCG, Qual Negative 09/19/18 18:09 WBC RBC Hgb Hct MCV MCH MCHC RDW Plt Count Lymph % (Auto) Phelps % (Auto) Eos % (Auto) Baso % (Auto) Lymph # Phelps # Eos # Baso # Seg Neutrophils % Seg Neutrophils # Sodium Potassium Chloride Carbon Dioxide Anion Gap BUN Creatinine Estimated GFR BUN/Creatinine Ratio Glucose Calcium Troponin T < 0.010 HCG, Qual - EKG Data -: EKG Interpreted by Me EKG shows normal: sinus rhythm Rate: normal - EKG Data When compared to previous EKG there are: no significant change Interpretation: unchanged when compared t - Radiology Data Radiology results: report reviewed (chest x-ray), image reviewed (chest x-ray) interpreted by me: Chest x-ray-no focal infiltrates, no pneumothorax [address] [address] XRay Report Signed Patient: DAVID LOWE MR#: [id number] : 1980 Acct:[id number] Age/Sex: 37 / F ADM Date: 09/19/18 Loc: ED Attending Dr: Ordering Physician: VICKIE HECTOR MD Date of Service: 09/19/18 Procedure(s): XR chest 1V ap Accession Number(s): [id number] cc: VICKIE HECTOR MD Fluoro Time In Minutes: CHEST 1 VIEW 4:29 PM INDICATION / CLINICAL INFORMATION: Chest Pain. COMPARISON: 07/04/2018. FINDINGS: SUPPORT DEVICES: None. HEART / MEDIASTINUM: There is borderline cardiomegaly. Pulmonary vasculature is normal. The aorta is slightly tortuous without aneurysm. LUNGS / PLEURA: No significant pulmonary or pleural abnormality. No pneumothorax. ADDITIONAL FINDINGS: No significant additional findings. IMPRESSION: No acute abnormality or significant change. Signer Name: Dion Garcia MD Signed: 09/19/2018 4:50 PM Workstation Name: [id number] Transcribed By: RT Dictated By: Dion Garcia MD Electronically Authenticated By: Dion Garcia MD Signed Date/Time: 09/19/181649 DD/ 47 TD/TT: - Differential Diagnosis hypertensive urgency, ACS, pericarditis, ICH Critical care attestation.: If time is entered above; I have spent that time in minutes in the direct care of this critically ill patient, excluding procedure time. ED Disposition Clinical Impression: Hypertensive urgency, Chest pain, Headache Disposition: OP ADMIT IP TO THIS HOSP Is pt being admited?: Yes Condition: Fair Instructions: Chest Pain (ED) Referrals: PRIMARY CARE, [Referring] - 3-5 Days Time of Disposition: 18:00 (Hospitalist notified)
--- NOTE | 2018-09-19 16:54 | XRay Report ---
CHEST 1 VIEW 4:29 PM INDICATION / CLINICAL INFORMATION: Chest Pain. COMPARISON: 07/04/2018. FINDINGS: SUPPORT DEVICES: None. HEART / MEDIASTINUM: There is borderline cardiomegaly. Pulmonary vasculature is normal. The aorta is slightly tortuous without aneurysm. LUNGS / PLEURA: No significant pulmonary or pleural abnormality. No pneumothorax. ADDITIONAL FINDINGS: No significant additional findings. IMPRESSION: No acute abnormality or significant change. Signer Name: Dion Garcia MD Signed: 09/19/2018 4:50 PM Workstation Name: [id number]
--- NOTE | 2018-09-19 17:48 | Cat Scan Report ---
CT HEAD WITHOUT CONTRAST INDICATION / CLINICAL INFORMATION: Hypertensive patient with headache. TECHNIQUE: All CT scans at this location are performed using CT dose reduction for ALARA by means of automated e xposure control. COMPARISON: None available. FINDINGS: HEMORRHAGE: No evidence of intracranial hemorrhage or extra-axial fluid collection. EXTRA-AXIAL SPACES: Cortical sulci, sylvian fissures and basilar cisterns have an unremarkable appear ance. VENTRICULAR SYSTEM: The ventricular system is of normal size and configuration. CEREBRAL PARENCHYMA: No areas of abnormal brain parenchymal attenuation are identified. There is no i ndication of recent infarction. MIDLINE SHIFT OR HERNIATION: There is no mass effect. CEREBELLUM / BRAINSTEM: Brainstem and cerebellum have an unremarkable appearance. INTRACRANIAL VESSELS:No abnormalities are identified on this noncontrast head CT. ORBITS: visualized portions of the orbits have an unremarkable appearance. SOFT TISSUES of HEAD: No significant abnormality. CALVARIUM: Evaluation of bone windows reveals no abnormalities. PARANASAL SINUSES / MASTOID AIR CELLS: Mucosal thickening is present at the base of the left maxillar y sinus. Paranasal sinuses are otherwise free from inflammatory mucosal disease. Mastoid air cells ar e normally pneumatized. ADDITIONAL FINDINGS: None. IMPRESSION: 1. No intracranial abnormalities on head CT without contrast. Signer Name: Eleazar Lowry MD Signed: 09/19/2018 5:43 PM Workstation Name: [email or web address]
[2018-09-19] MEDS ORDERED: NITRO-BID 2% TP ONE (17:50)
[2018-09-19] MEDS ORDERED: APRESOLINE IV ONE (18:36)
--- NOTE | 2018-09-19 18:36 | Event Note ---
Date: 09/19/18 37 YO Female with HTN, Nicotine Dependence presents to ED for evaluation. Pt seen and evaluated in ED and found to have HTN secondary to medication noncompliance. Pt treated with resumption of antihypertensive therapy with improvement in symptoms. Pt denies fever, chills, CP, Palpitations, NUNEZ, NVD, leg swelling, calf pain. Pt denies any complaints at time of exam. Pt reports coming to ED to get prescription for blood pressure medication due to loss of insurance. Pt medically optimized and back to usual state of health. Pt counseled regarding cardiac risk factor reduction, smoking cessation (+15min), balanced diet, increased physical activity at discharge. Pt discharged home and instructed to f/u pcp 3-5 days, cardiology 3-5 days. Physical Exam: GENERAL: The patient is well-developed well-nourished female, resting NAD. HEENT: Normocephalic. Atraumatic. Extraocular motions are intact. Patient has moist mucous membranes. NECK: Supple. Trachea midline CHEST/LUNGS: Clear to auscultation. There is no respiratory distress noted. HEART/CARDIOVASCULAR: Regular. There is no tachycardia. There is no gallop rub or murmur. ABDOMEN: Abdomen is soft, nontender. Patient has normal bowel sounds. There is no abdominal distention. SKIN: There is no rash. There is no edema. There is no diaphoresis. NEURO: The patient is awake, alert, and oriented. The patient is cooperative. The patient has no focal neurologic deficits. The patient has normal speech. Cranial nerves II-12 grossly intact, no drift MUSCULOSKELETAL: There is no evidence of acute injury.
[2018-09-19 20:04] VITALS: BP 166/98
== END 2018-09-19 20:04 ==
LOC: ED 14:34
DX: I16.0 Hypertensive urgency (principal); I10 Essential (primary) hypertension; F17.200 Nicotine dependence, unspecified, uncomplicated; Z98.890 Other specified postprocedural states
CPT/HCPCS: 36415; 70450; 71045; 80048; 83880; 84484; 84703; 85025; 93005; 93010; 99285; J0360

== ENCOUNTER 2019-02-15 17:20 | Emergency (ER) | payer SELFPAY ==
--- NOTE | 2019-02-15 17:27 | Emergency Department Report ---
Blank Doc - Documentation Documentation: 38-year-old female that presents with headache and uncontrolled HTN. This initial assessment/diagnostic orders/clinical plan/treatment(s) is/are subject to change based on patient's health status, clinical progression and re- assessment by fellow clinical providers in the ED. Further treatment and workup at subsequent clinical providers discretion. Patient/guardians urged not to elope from the ED as their condition may be serious if not clinically assessed and managed. Initial orders include: 1- Patient sent to [facility] for further evaluation and treatment 2- CT head 3- labs
[2019-02-15] MEDS ORDERED: BUTALB/ACETAMINOPHEN/CAFFEINE TAB PO ONE (18:24)
[2019-02-15] MEDS ORDERED: hydrALAZINE 20 MG/1 ML INJ IV ONE (18:24)
[2019-02-15 18:36] LABS: Calcium 9.8 mg/dL (8.4-10.2)
[2019-02-15 18:43] LABS: Basophils # (Auto) 0.1 K/mm3 (0.0-0.1); Basophils % (Auto) 0.9 % (0.0-1.8); Eosinophils # (Auto) 0.1 K/mm3 (0.0-0.4); Eosinophils % (Auto) 1.9 % (0.0-4.3); Hemoglobin 14.4 gm/dl (10.1-14.3); Lymphocytes # (Auto) 1.8 K/mm3 (1.2-5.4); Lymphocytes % (Auto) 23.9 % (13.4-35.0); Mean Corpuscular HGB Conc 34 % (30-34); Mean Corpuscular Volume 96 fl (79-97); Monocytes % (Auto) 12.9 % (0.0-7.3); Platelet Count 181 K/mm3 (140-440); Red Blood Count 4.49 M/mm3 (3.65-5.03); Red Cell Distribution Width 14.1 % (13.2-15.2)
--- NOTE | 2019-02-15 19:16 | Cat Scan Report ---
NONENHANCED CT SCAN OF THE HEAD: INDICATION / CLINICAL INFORMATION: 38 years Female; headache. TECHNIQUE: Routine CT head without contrast. All CT scans at this location are performed using CT dos e reduction for ALARA by means of automated exposure control. COMPARISON: CT scan of the brain from 09/19/2018 FINDINGS: BRAIN / INTRACRANIAL CONTENTS: No acute hemorrhage, mass effect, midline shift, hydrocephalus, or ac alex, large territorial infarct. No chronic infarct or focal atrophy. Normal brain volume and ventricu lar/sulcal size for age. No significant white matter abnormality. CRANIOCERVICAL JUNCTION: No significant abnormality. ORBITS: No significant abnormality of visualized orbits. SINUSES / MASTOIDS: Minimal mucosal thickening in the left maxillary sinus with small retention cysts ADDITIONAL FINDINGS: None. IMPRESSION: Normal nonenhanced CT scan of the brain. Signer Name: Miah Mc MD Signed: 02/15/2019 7:12 PM Workstation Name: [id number]
--- NOTE | 2019-02-15 19:24 | Emergency Department Report ---
ED General Adult HPI - General Chief complaint: High BP Stated complaint: HEADACHE/DIZZY/HBP Time Seen by Provider: 02/15/19 17:26 Source: patient Mode of arrival: Ambulatory Limitations: No Limitations - History of Present Illness Initial comments: The patient presents to the emergency department with a chief complaint of elevated blood pressure. The patient states she has a history of hypertension and to recently did not have any healthcare insurance so she will come to the emergency department for blood pressure medications but when they were run out she had no way of getting them. Patient states her blood pressure was measured at work and it was greater than 250/160. Patient complains of a diffuse throbbing headache that she describes as consistent nature to previous headaches she's had with her elevated blood pressures. Patient denies any chest pain, shortness breath, or abdominal pain. Patient works in the pharmacy at [employer] -: Sudden Location: head Radiation: non-radiation Severity scale (0 -10): 5 Quality: other (throbbing) Consistency: constant Improves with: none Worsens with: none Associated Symptoms: denies other symptoms Treatments Prior to Arrival: none - Related Data Previous Rx's Medication Instructions Recorded Last Taken Type Aspirin EC 325 mg PO QDAY #30 tablet. 05/06/18 Unknown Rx Clindamycin [Clindamycin CAP] 450 mg PO Q8HR 7 Days capsule 05/06/18 Unknown Rx Ibuprofen [Motrin] 800 mg PO Q8HR PRN #30 tablet 05/06/18 Unknown Rx amLODIPine [Norvasc] 10 mg PO DAILY #30 tab 05/06/18 Unknown Rx traMADoL [Ultram 50 MG tab] 50 mg PO Q6HR PRN #20 tablet 05/06/18 Unknown Rx Furosemide [Lasix] 20 mg PO QDAY #5 tablet 07/04/18 Unknown Rx Ibuprofen [Ibu] 600 mg PO Q6HR PRN #20 tablet 07/04/18 Unknown Rx amLODIPine [Norvasc] 10 mg PO DAILY #30 tab 07/04/18 Unknown Rx Lisinopril/Hydrochlorothiazide 1 each PO DAILY #30 tablet 09/19/18 Unknown Rx [Zestoretic 10-12.5 mg Tablet] Simvastatin 10 mg PO DAILY #30 tablet 09/19/18 Unknown Rx atenoloL [Tenormin] 50 mg PO BID #60 tab 09/19/18 Unknown Rx Butalb/Acetamin/Caff 50-325-40 1 tab PO Q6HR PRN #24 tab 02/15/19 Unknown Rx [Fioricet] amLODIPine [Norvasc] 10 mg PO DAILY #30 tab 02/15/19 Unknown Rx hydroCHLOROthiazide [Hctz] 12.5 mg PO QDAY #30 capsule 02/15/19 Unknown Rx Allergies Allergy/AdvReac Type Severity Reaction Status Date / Time No Known Allergies Allergy Verified 07/04/18 12:10 ED Review of Systems ROS: Stated complaint: HEADACHE/DIZZY/HBP Other details as noted in HPI Comment: All other systems reviewed and negative Constitutional: denies: chills, fever Eyes: denies: eye pain, eye discharge, vision change ENT: denies: ear pain, throat pain Respiratory: denies: cough, shortness of breath, wheezing Cardiovascular: denies: chest pain, palpitations Endocrine: no symptoms reported Gastrointestinal: denies: abdominal pain, nausea, diarrhea Genitourinary: denies: urgency, dysuria, discharge Musculoskeletal: denies: back pain, joint swelling, arthralgia Skin: denies: rash, lesions Neurological: denies: headache, weakness, paresthesias Psychiatric: denies: anxiety, depression Hematological/Lymphatic: denies: easy bleeding, easy bruising ED Past Medical Hx - Past Medical History Hx Hypertension: Yes Additional medical history: LVH - Surgical History Additional Surgical History: Surgery to left leg - Social History Smoking Status: Never Smoker Substance Use Type: None - Medications Home Medications: Home Medications Medication Instructions Recorded Confirmed Last Taken Type Aspirin EC 325 mg PO QDAY #30 tablet. 05/06/18 Unknown Rx Clindamycin [Clindamycin CAP] 450 mg PO Q8HR 7 Days capsule 05/06/18 Unknown Rx Ibuprofen [Motrin] 800 mg PO Q8HR PRN #30 tablet 05/06/18 Unknown Rx amLODIPine [Norvasc] 10 mg PO DAILY #30 tab 05/06/18 Unknown Rx traMADoL [Ultram 50 MG tab] 50 mg PO Q6HR PRN #20 tablet 05/06/18 Unknown Rx Furosemide [Lasix] 20 mg PO QDAY #5 tablet 07/04/18 Unknown Rx Ibuprofen [Ibu] 600 mg PO Q6HR PRN #20 tablet 07/04/18 Unknown Rx amLODIPine [Norvasc] 10 mg PO DAILY #30 tab 07/04/18 Unknown Rx Lisinopril/Hydrochlorothiazide 1 each PO DAILY #30 tablet 09/19/18 Unknown Rx [Zestoretic 10-12.5 mg Tablet] Simvastatin 10 mg PO DAILY #30 tablet 09/19/18 Unknown Rx atenoloL [Tenormin] 50 mg PO BID #60 tab 09/19/18 Unknown Rx Butalb/Acetamin/Caff 50-325-40 1 tab PO Q6HR PRN #24 tab 02/15/19 Unknown Rx [Fioricet] amLODIPine [Norvasc] 10 mg PO DAILY #30 tab 02/15/19 Unknown Rx hydroCHLOROthiazide [Hctz] 12.5 mg PO QDAY #30 capsule 02/15/19 Unknown Rx ED Physical Exam - General Limitations: No Limitations General appearance: alert, in no apparent distress - Head Head exam: Present: atraumatic, normocephalic - Eye Eye exam: Present: normal appearance, PERRL, EOMI - ENT ENT exam: Present: mucous membranes moist - Neck Neck exam: Present: normal inspection - Respiratory Respiratory exam: Present: normal lung sounds bilaterally. Absent: respiratory distress - Cardiovascular Cardiovascular Exam: Present: regular rate, normal rhythm. Absent: systolic murmur, diastolic murmur, rubs, gallop - GI/Abdominal GI/Abdominal exam: Present: soft, normal bowel sounds - Extremities Exam Extremities exam: Present: normal inspection - Back Exam Back exam: Present: normal inspection - Neurological Exam Neurological exam: Present: alert, oriented X3, CN II-XII intact. Absent: motor sensory deficit - Psychiatric Psychiatric exam: Present: normal affect, normal mood - Skin Skin exam: Present: warm, dry, intact, normal color. Absent: rash ED Course Vital Signs 02/15/19 02/15/19 02/15/19 17:27 17:45 17:50 Temperature 98.2 F Pulse Rate 105 H 100 H Respiratory 98 H 18 Rate Blood Pressure 255/159 Blood Pressure 250/153 [Right] O2 Sat by Pulse 97 100 Oximetry 02/15/19 02/15/19 02/15/19 18:00 18:15 18:30 Temperature Pulse Rate 100 H 98 H 99 H Respiratory 24 24 20 Rate Blood Pressure 232/156 232/156 246/171 Blood Pressure [Right] O2 Sat by Pulse 97 97 Oximetry 02/15/19 02/15/19 02/15/19 18:31 18:49 19:00 Temperature Pulse Rate 97 H 117 H 113 H Respiratory 24 18 Rate Blood Pressure 246/171 246/171 201/122 Blood Pressure [Right] O2 Sat by Pulse 99 99 Oximetry 02/15/19 02/15/19 02/15/19 19:15 19:30 19:45 Temperature Pulse Rate 111 H 109 H 112 H Respiratory 22 23 15 Rate Blood Pressure 201/122 191/135 246/171 Blood Pressure [Right] O2 Sat by Pulse 98 98 98 Oximetry 02/15/19 20:00 Temperature Pulse Rate 109 H Respiratory 15 Rate Blood Pressure 193/115 Blood Pressure [Right] O2 Sat by Pulse 98 Oximetry ED Medical Decision Making - Lab Data Result diagrams: 02/15/19 17:52 02/15/19 17:52 Lab Results 02/15/19 02/15/19 02/15/19 Range/Units 17:52 17:52 17:52 WBC 7.5 (4.5-11.0) K/mm3 RBC 4.49 (3.65-5.03) M/mm3 Hgb 14.4 H (10.1-14.3) gm/dl Hct 43.0 H (30.3-42.9) % MCV 96 (79-97) fl MCH 32 (28-32) pg MCHC 34 (30-34) % RDW 14.1 (13.2-15.2) % Plt Count 181 (140-440) K/mm3 Lymph % (Auto) 23.9 (13.4-35.0) % Coke % (Auto) 12.9 H (0.0-7.3) % Eos % (Auto) 1.9 (0.0-4.3) % Baso % (Auto) 0.9 (0.0-1.8) % Lymph # 1.8 (1.2-5.4) K/mm3 Coke # 1.0 H (0.0-0.8) K/mm3 Eos # 0.1 (0.0-0.4) K/mm3 Baso # 0.1 (0.0-0.1) K/mm3 Seg Neutrophils % 60.4 (40.0-70.0) % Seg Neutrophils # 4.5 (1.8-7.7) K/mm3 Sodium 141 (137-145) mmol/L Potassium 3.3 L (3.6-5.0) mmol/L Chloride 100.6 (98-107) mmol/L Carbon Dioxide 25 (22-30) mmol/L Anion Gap 19 mmol/L BUN 22 H (7-17) mg/dL Creatinine 1.4 H (0.7-1.2) mg/dL Estimated GFR 51 ml/min BUN/Creatinine Ratio 16 % Glucose 108 H (65-100) mg/dL Calcium 9.8 (8.4-10.2) mg/dL HCG, Qual Negative (Negative) - Radiology Data Radiology results: report reviewed - Medical Decision Making Discussed results with patient Headache improved with Fioricet Patient given IV hydralazine and blood pressure decreased to 196/110 Critical Care Time: Yes Critical care time in (mins) excluding proc time.: 35 Critical care attestation.: If time is entered above; I have spent that time in minutes in the direct care of this critically ill patient, excluding procedure time. ED Disposition Clinical Impression: Hypertension, Headache Disposition: DC- TO HOME OR SELFCARE Is pt being admited?: No Does the pt Need Aspirin: No Condition: Stable Instructions: Acute Headache (ED), Hypertension (ED) Additional Instructions: return if worse Prescriptions: amLODIPine [Norvasc] 10 mg PO DAILY #30 tab Butalb/Acetamin/Caff 50-325-40 [Fioricet] 1 tab PO Q6HR PRN #24 tab PRN Reason: Headache hydroCHLOROthiazide [Hctz] 12.5 mg PO QDAY #30 capsule Referrals: [facility], [Provider Group] - 3-5 Days [facility] [Provider Group] - 3-5 Days Forms: Work/School Release Form(ED) Time of Disposition: 20:12
[2019-02-15 20:07] VITALS: BP 193/115
[2019-02-15] MEDS ORDERED: amLODIPine 5 MG TAB PO ONE (20:10)
== END 2019-02-15 20:40 | disposition home or self-care (01) ==
LOC: ED 17:20
DX: I10 Essential (primary) hypertension (principal); R51 Headache; Z98.890 Other specified postprocedural states; Z79.899 Other long term (current) drug therapy
CPT/HCPCS: 36415; 70450; 80048; 84703; 85025; 96374; 99284; J0360

== ENCOUNTER 2019-11-12 09:58 | Emergency (ER) | payer SELFPAY ==
--- NOTE | 2019-11-12 10:22 | Emergency Department Report ---
Blank Doc - Documentation Documentation: This is a 39-year-old female that presents with headache with chest pain and S OB. Has blurry vision. Has been out of her blood pressure medications. This initial assessment/diagnostic orders/clinical plan/treatment(s) is/are subject to change based on patient's health status, clinical progression and re- assessment by fellow clinical providers in the ED. Further treatment and workup at subsequent clinical providers discretion. Patient/guardians urged not to elope from the ED as their condition may be serious if not clinically assessed and managed. Initial orders include: 1- Patient sent to MAIN ED for further evaluation and treatment 2- labs 3- CT head
[2019-11-12 10:40] LABS: Basophils # (Auto) 0.1 K/mm3 (0.0-0.1); Eosinophils # (Auto) 0.1 K/mm3 (0.0-0.4); Hematocrit 46.6 % (30.3-42.9); Hemoglobin 15.9 gm/dl (10.1-14.3); Lymphocytes # (Auto) 1.8 K/mm3 (1.2-5.4); Lymphocytes % (Auto) 17.6 % (13.4-35.0); Mean Corpuscular HGB Conc 34 % (30-34); Mean Corpuscular Volume 93 fl (79-97); Monocytes % (Auto) 9.5 % (0.0-7.3); Platelet Count 223 K/mm3 (140-440); Red Blood Count 5.01 M/mm3 (3.65-5.03); Red Cell Distribution Width 13.7 % (13.2-15.2)
[2019-11-12 10:50] LABS: INR 1.05 (0.87-1.13)
[2019-11-12 10:51] LABS: Partial Thromboplastin Time 30.2 Sec. (24.2-36.6)
--- NOTE | 2019-11-12 11:12 | Cat Scan Report ---
CT BRAIN: 11/12/2019 INDICATION / CLINICAL INFORMATION: Headache. COMPARISON: 02/15/2019 FINDINGS: BRAIN/INTRACRANIAL STRUCTURES: Unenhanced CT images of the brain were obtained and compared to the pr ior exam 02/15/2019. There has been no change. There is no evidence of acute abnormality. Ventricles and sulci are normal in size and shape. There is no evidence of hemorrhage or mass. There are no abnormal extra-axial fluid collections. EXTRACRANIAL STRUCTURES: Unremarkable. IMPRESSION: No acute abnormality. No change when compared to 02/15/2019. All CT scans at this location are performed using dose reduction to ALARA by means of automated expos ure control. Signer Name: Sher Post MD Signed: 11/12/2019 11:08 AM Workstation Name: [id number]
[2019-11-12 11:13] LABS: Alanine Aminotransferase 24 units/L (7-56); Albumin 4.3 g/dL (3.9-5); BUN/Creatinine Ratio 15; Blood Urea Nitrogen 23 mg/dL (7-17); Calcium 10.1 mg/dL (8.4-10.2); Hemolysis Index 12
--- NOTE | 2019-11-12 12:07 | XRay Report ---
CHEST 2 VIEWS INDICATION / CLINICAL INFORMATION: Chest Pain. COMPARISON: 09/19/2018 FINDINGS: SUPPORT DEVICES: None. HEART / MEDIASTINUM: No significant abnormality. LUNGS / PLEURA: No significant pulmonary or pleural abnormality. No pneumothorax. ADDITIONAL FINDINGS: No significant additional findings. IMPRESSION: No significant abnormality or change from 09/19/2018 Signer Name: Barron Saenz MD FACR Signed: 11/12/2019 12:02 PM Workstation Name: [id number]
[2019-11-12] MEDS ORDERED: ACETAMINOPHEN 500 MG TAB PO ONE (12:18)
--- NOTE | 2019-11-12 16:57 | Emergency Department Report ---
ED General Adult HPI - General Chief complaint: High BP Stated complaint: BLURRY VISION,HBP Time Seen by Provider: 11/12/19 10:20 Source: patient Mode of arrival: Ambulatory Limitations: No Limitations - History of Present Illness Initial comments: CC: Chest pain headache elevated blood pressure HPI: This is a 39-year-old female with history of hypertension who presents with headache chest pain and elevated blood pressure. Patient has frequent headaches frontal dull. No headache currently. She had 1 episode of nondescript chest pain several weeks ago which lasted a few seconds. Pressure sensation. She admits to being under a lot of stress recently. She has had family issues. She denies domestic violence. She denies depression or suicidal ideation. Due to lack of healthcare insurance she has been unable to obtain blood pressure medications or primary care. She is currently symptom-free. She is concerned for elevated blood pressure. She denies visual disturbance. -: Gradual Location: head, chest Severity scale (0 -10): 4 Quality: dull Consistency: now resolved Improves with: none Worsens with: none Associated Symptoms: chest pain Treatments Prior to Arrival: none - Related Data Previous Rx's Medication Instructions Recorded Last Taken Type Aspirin EC [Ecotrin] 325 mg PO QDAY #30 tablet. 05/06/18 Unknown Rx Clindamycin [Clindamycin CAP] 450 mg PO Q8HR 7 Days capsule 05/06/18 Unknown Rx Ibuprofen [Motrin] 800 mg PO Q8HR PRN #30 tablet 05/06/18 Unknown Rx amLODIPine [Norvasc] 10 mg PO DAILY #30 tab 05/06/18 Unknown Rx traMADoL [Ultram 50 MG tab] 50 mg PO Q6HR PRN #20 tablet 05/06/18 Unknown Rx Furosemide [Lasix] 20 mg PO QDAY #5 tablet 07/04/18 Unknown Rx Ibuprofen [Ibu] 600 mg PO Q6HR PRN #20 tablet 07/04/18 Unknown Rx amLODIPine [Norvasc] 10 mg PO DAILY #30 tab 07/04/18 Unknown Rx Lisinopril/Hydrochlorothiazide 1 each PO DAILY #30 tablet 09/19/18 Unknown Rx [Zestoretic 10-12.5 mg Tablet] Simvastatin 10 mg PO DAILY #30 tablet 09/19/18 Unknown Rx atenoloL [Tenormin] 50 mg PO BID #60 tab 09/19/18 Unknown Rx Butalb/Acetamin/Caff 50-325-40 1 tab PO Q6HR PRN #24 tab 02/15/19 Unknown Rx [Fioricet] amLODIPine [Norvasc] 10 mg PO DAILY #30 tab 02/15/19 Unknown Rx hydroCHLOROthiazide [Hctz] 12.5 mg PO QDAY #30 capsule 02/15/19 Unknown Rx amLODIPine 10 mg PO DAILY #30 tab 11/12/19 Unknown Rx hydroCHLOROthiazide [HCTZ] 25 mg PO QDAY #30 tablet 11/12/19 Unknown Rx Allergies Allergy/AdvReac Type Severity Reaction Status Date / Time No Known Allergies Allergy Verified 07/04/18 12:10 ED Review of Systems ROS: Stated complaint: BLURRY VISION,HBP Other details as noted in HPI Comment: All other systems reviewed and negative Constitutional: denies: fever, malaise Respiratory: denies: cough, shortness of breath Cardiovascular: chest pain Neurological: headache. denies: numbness, paresthesias ED Past Medical Hx - Past Medical History Previous Medical History?: Yes Hx Hypertension: Yes Additional medical history: LVH - Surgical History Past Surgical History?: Yes Additional Surgical History: Surgery to left leg - Social History Smoking Status: Never Smoker Substance Use Type: None - Medications Home Medications: Home Medications Medication Instructions Recorded Confirmed Last Taken Type Aspirin EC [Ecotrin] 325 mg PO QDAY #30 tablet. 05/06/18 Unknown Rx Clindamycin [Clindamycin CAP] 450 mg PO Q8HR 7 Days capsule 05/06/18 Unknown Rx Ibuprofen [Motrin] 800 mg PO Q8HR PRN #30 tablet 05/06/18 Unknown Rx amLODIPine [Norvasc] 10 mg PO DAILY #30 tab 05/06/18 Unknown Rx traMADoL [Ultram 50 MG tab] 50 mg PO Q6HR PRN #20 tablet 05/06/18 Unknown Rx Furosemide [Lasix] 20 mg PO QDAY #5 tablet 07/04/18 Unknown Rx Ibuprofen [Ibu] 600 mg PO Q6HR PRN #20 tablet 07/04/18 Unknown Rx amLODIPine [Norvasc] 10 mg PO DAILY #30 tab 07/04/18 Unknown Rx Lisinopril/Hydrochlorothiazide 1 each PO DAILY #30 tablet 09/19/18 Unknown Rx [Zestoretic 10-12.5 mg Tablet] Simvastatin 10 mg PO DAILY #30 tablet 09/19/18 Unknown Rx atenoloL [Tenormin] 50 mg PO BID #60 tab 09/19/18 Unknown Rx Butalb/Acetamin/Caff 50-325-40 1 tab PO Q6HR PRN #24 tab 02/15/19 Unknown Rx [Fioricet] amLODIPine [Norvasc] 10 mg PO DAILY #30 tab 02/15/19 Unknown Rx hydroCHLOROthiazide [Hctz] 12.5 mg PO QDAY #30 capsule 02/15/19 Unknown Rx amLODIPine 10 mg PO DAILY #30 tab 11/12/19 Unknown Rx hydroCHLOROthiazide [HCTZ] 25 mg PO QDAY #30 tablet 11/12/19 Unknown Rx ED Physical Exam - General Limitations: No Limitations General appearance: alert, in no apparent distress - Head Head exam: Present: atraumatic, normocephalic - Eye Eye exam: Present: normal appearance - ENT ENT exam: Present: mucous membranes moist - Neck Neck exam: Present: normal inspection, full ROM - Respiratory Respiratory exam: Present: normal lung sounds bilaterally. Absent: respiratory distress, wheezes, rales, stridor - Cardiovascular Cardiovascular Exam: Present: regular rate, normal rhythm, normal heart sounds. Absent: systolic murmur, diastolic murmur, rubs, gallop - GI/Abdominal GI/Abdominal exam: Present: soft, normal bowel sounds. Absent: distended, tenderness, guarding, rebound - Extremities Exam Extremities exam: Present: normal inspection - Neurological Exam Neurological exam: Present: alert, oriented X3 - Psychiatric Psychiatric exam: Present: normal affect, normal mood - Skin Skin exam: Present: warm, dry, intact, normal color. Absent: rash ED Course Vital Signs 11/12/19 11/12/19 11/12/19 10:20 12:44 12:46 Temperature 98 F Pulse Rate 105 H 94 H 91 H Respiratory 18 16 16 Rate Blood Pressure 225/158 Blood Pressure 243/165 [Right] O2 Sat by Pulse Oximetry 11/12/19 11/12/19 11/12/19 13:00 13:15 13:21 Temperature Pulse Rate 84 82 Respiratory 18 17 18 Rate Blood Pressure 194/138 214/155 Blood Pressure [Right] O2 Sat by Pulse 99 Oximetry 09/14/20 09/14/20 09/14/20 13:30 13:46 14:40 Temperature Pulse Rate 80 Respiratory 17 17 Rate Blood Pressure 213/144 213/144 211/162 Blood Pressure [Right] O2 Sat by Pulse Oximetry 11/12/19 11/12/19 11/12/19 15:04 15:05 15:16 Temperature Pulse Rate 85 78 Respiratory 15 Rate Blood Pressure 206/147 206/147 206/147 Blood Pressure [Right] O2 Sat by Pulse Oximetry 11/12/19 11/12/19 11/12/19 15:30 15:46 16:00 Temperature Pulse Rate 80 79 77 Respiratory 17 13 17 Rate Blood Pressure 206/147 211/162 206/147 Blood Pressure [Right] O2 Sat by Pulse Oximetry 11/12/19 11/12/19 16:12 16:15 Temperature Pulse Rate 86 77 Respiratory 11 L Rate Blood Pressure 213/152 193/129 Blood Pressure [Right] O2 Sat by Pulse Oximetry ED Medical Decision Making - Lab Data Result diagrams: 11/12/19 10:28 11/12/19 10:28 Laboratory Results - last 24 hr 11/12/19 11/12/19 11/12/19 10:28 10:28 10:28 WBC 10.2 RBC 5.01 Hgb 15.9 H Hct 46.6 H MCV 93 MCH 32 MCHC 34 RDW 13.7 Plt Count 223 Lymph % (Auto) 17.6 [place] % (Auto) 9.5 H Eos % (Auto) 1.0 Baso % (Auto) 1.0 Lymph # 1.8 [place] # 1.0 H Eos # 0.1 Baso # 0.1 Seg Neutrophils % 70.9 H Seg Neutrophils # 7.2 PT 13.8 INR 1.05 APTT 30.2 Sodium 139 Potassium 3.5 L Chloride 98.8 Carbon Dioxide 24 Anion Gap 20 BUN 23 H Creatinine 1.5 H Estimated GFR 47 BUN/Creatinine Ratio 15 Glucose 108 H Calcium 10.1 Total Bilirubin 0.40 AST 23 ALT 24 Alkaline Phosphatase 60 Troponin T < 0.010 Total Protein 7.9 Albumin 4.3 Albumin/Globulin Ratio 1.2 HCG, Qual 11/12/19 11/12/19 10:28 12:33 WBC RBC Hgb Hct MCV MCH MCHC RDW Plt Count Lymph % (Auto) [place] % (Auto) Eos % (Auto) Baso % (Auto) Lymph # [place] # Eos # Baso # Seg Neutrophils % Seg Neutrophils # PT INR APTT Sodium Potassium Chloride Carbon Dioxide Anion Gap BUN Creatinine Estimated GFR BUN/Creatinine Ratio Glucose Calcium Total Bilirubin AST ALT Alkaline Phosphatase Troponin T < 0.010 Total Protein Albumin Albumin/Globulin Ratio HCG, Qual Negative - Medical Decision Making 1. Hypertensive urgency no signs of endorgan damage. Renal function is at baseline. Blood pressure improved with IV labetalol doses. 2. Tension headache without neurological symptoms or red flags such as persistent visual disturbance, paralysis, numbness, vomiting. 2. Chest pain: Transient chest pain would last for several seconds without indication of ACS or pulmonary embolism. Patient is PERC negative. I have prescribed amlodipine and hydrochlorothiazide. Patient is discharged home. Vital Signs - 24 hr 11/12/19 11/12/19 11/12/19 10:20 12:44 12:46 Temperature 98 F Pulse Rate 105 H 94 H 91 H Respiratory 18 16 16 Rate Blood Pressure 225/158 Blood Pressure 243/165 [Right] O2 Sat by Pulse Oximetry 11/12/19 11/12/19 11/12/19 13:00 13:15 13:21 Temperature Pulse Rate 84 82 Respiratory 18 17 18 Rate Blood Pressure 194/138 214/155 Blood Pressure [Right] O2 Sat by Pulse 99 Oximetry 11/12/19 11/12/19 11/12/19 13:30 13:46 14:40 Temperature Pulse Rate 80 Respiratory 17 17 Rate Blood Pressure 213/144 213/144 211/162 Blood Pressure [Right] O2 Sat by Pulse Oximetry 11/12/19 11/12/19 11/12/19 15:04 15:05 15:16 Temperature Pulse Rate 85 78 Respiratory 15 Rate Blood Pressure 206/147 206/147 206/147 Blood Pressure [Right] O2 Sat by Pulse Oximetry 11/12/19 11/12/19 11/12/19 15:30 15:46 16:00 Temperature Pulse Rate 80 79 77 Respiratory 17 13 17 Rate Blood Pressure 206/147 211/162 206/147 Blood Pressure [Right] O2 Sat by Pulse Oximetry 11/12/19 11/12/19 16:12 16:15 Temperature Pulse Rate 86 77 Respiratory 11 L Rate Blood Pressure 213/152 193/129 Blood Pressure [Right] O2 Sat by Pulse Oximetry Critical care attestation.: If time is entered above; I have spent that time in minutes in the direct care of this critically ill patient, excluding procedure time. ED Disposition Clinical Impression: Hypertensive urgency, Tension headache, Chest pain Disposition: TO HOME OR SELFCARE Is pt being admited?: No Does the pt Need Aspirin: No Condition: Stable Instructions: Hypertension (ED) Prescriptions: amLODIPine 10 mg PO DAILY #30 tab hydroCHLOROthiazide [HCTZ] 25 mg PO QDAY #30 tablet Referrals: FAN LIVINGSTON MD [Staff Physician] - 3-5 Days
[2019-11-12 17:29] VITALS: BP 175/120
== END 2019-11-12 17:22 | disposition home or self-care (01) ==
LOC: ED 09:58
DX: G44.209 Tension-type headache, unspecified, not intractable (principal); I16.0 Hypertensive urgency; R07.9 Chest pain, unspecified; I10 Essential (primary) hypertension; Z98.890 Other specified postprocedural states; Z79.899 Other long term (current) drug therapy
CPT/HCPCS: 36415; 70450; 71046; 80053; 84484; 84703; 85025; 85610; 85730; 96374; 96376